=== PATIENT | female | born 1955 | race Caucasian/White ===

== ENCOUNTER 2021-09-16 08:55 | Emergency (ER) | payer OTHER ==
[~2021-09-16] VITALS: Ht 152.4 cm; Wt 74.8 kg
[2021-09-16] MEDS ORDERED: COZAAR25 MG (08:58)
[2021-09-16] MEDS ORDERED: GLIPIZIDE XL2.5 MG (08:59)
== END 2021-09-16 12:30 | disposition home or self-care (01) ==
LOC: ER 08:55
DX: N23 Unspecified renal colic (principal); R30.0 Dysuria; N39.0 Urinary tract infection, site not specified; I87.8 Other specified disorders of veins; Z20.822 Contact with and (suspected) exposure to COVID-19

== ENCOUNTER 2021-09-21 15:07 | Emergency (ER) | payer OTHER ==
[~2021-09-21] VITALS: Ht 152.4 cm; Wt 74.8 kg
[~2021-09-21 15:07] MED LIST: COZAAR25 MG; GLIPIZIDE XL2.5 MG
[2021-09-21] MEDS ORDERED: CYCLOBENZAPRINE10 MG PO (17:25)
[2021-09-21] MEDS ORDERED: NORFLEX100MG PO (17:25)
== END 2021-09-21 17:37 | disposition home or self-care (01) ==
LOC: ER 15:07
DX: M54.9 Dorsalgia, unspecified (principal)